=== PATIENT | female | born 1990 | race Two or more races ===

== ENCOUNTER 2019-08-12 21:50 | Emergency (ER) | payer MEDICAID ==
[~2019-08-12] VITALS: Ht 170.2 cm; Wt 53.5 kg
[2019-08-12 21:58] VITALS: Ht 170.2 cm; Wt 53.5 kg
[2019-08-12 22:55] LABS: BASOPHIL % 0.8 % (0-2); PLATELET COUNT 380 x10^3mcL (130-400)
[2019-08-12 23:46] VITALS: BP 125/95
== END 2019-08-12 23:46 | disposition home or self-care (01) ==
LOC: ED 21:50
PROVIDERS: Emergency Medicine
DX: N93.8 Other specified abnormal uterine and vaginal bleeding (principal)
CPT/HCPCS: 36415